=== PATIENT | female | born 1955 | race Two or more races ===

== ENCOUNTER 2023-08-07 21:39 | Inpatient (IN) | payer MEDICARE, OTHER ==
[~2023-08-07] VITALS: Ht 162.6 cm; Wt 89.8 kg
[2023-08-07 20:00] VITALS: BP 117/75; TEMP 98.1; O2SAT 100
[2023-08-07] MEDS ORDERED: LORAZEPAM 0.5 MG TABLET PO PRN (22:30)
[2023-08-07] MEDS ORDERED: ACETAMINOPHEN 325 MG TABLET PO PRN (22:30)
[2023-08-07] MEDS ORDERED: MAGNESIUM HYDROXIDE 30 ML UDC PO PRN (22:30)
[2023-08-07] MEDS ORDERED: MAG HYDROX/AL HYDROX/SIMETH 30 ML UDC PO PRN (22:30)
[2023-08-07] MEDS ORDERED: TEMAZEPAM 7.5 MG CAPSULE PO PRN (22:30)
[2023-08-07] MEDS ORDERED: MELA5TAB PO (22:32)
[2023-08-07] MEDS ORDERED: RISP2TAB85 PO (22:33)
[2023-08-07] MEDS ORDERED: [UNRECOGNIZED DRUG - CODE] SQ (22:35)
[2023-08-07] MEDS ORDERED: SENN-261 PO (22:36)
[2023-08-07] MEDS ORDERED: HALO5TAB PO (22:37)
[2023-08-08] MEDS ORDERED: SENNOSIDES 8.6 MG TABLET PO PRN
[2023-08-08] MEDS: BLOOD SUGAR DIAGNOSTIC 1 EACH STRIP IN ONE (00:18)
[2023-08-08] MEDS ORDERED: NACL SQ SCH (05:00)
[2023-08-08] MEDS ORDERED: HEPARIN SOD PORCINE SQ SCH (05:00)
[2023-08-08] MEDS ORDERED: [UNRECOGNIZED DRUG - OTHER] SQ SCH (05:00)
[2023-08-08 08:00] VITALS: BP 125/85; TEMP 97.6; O2SAT 95
[2023-08-08] MEDS: THERAHONEY GEL 1.5 OZ TUBE TP SCH (09:40)
[2023-08-08] MEDS: risperiDONE 1 MG TABLET PO SCH ×2 (12:30→21:00)
[2023-08-08 16:00] VITALS: BP 149/93; TEMP 97.7; O2SAT 95
[2023-08-08] MEDS: HALOPERIDOL LACTATE INJ 5 MG/ML VIAL IM PRN (21:12)
[2023-08-09 08:00] VITALS: BP_SYST 121; BP_SYST 142; BP_DIAS 58; BP_DIAS 72; TEMP 98; TEMP 98.6; O2SAT 100; O2SAT 98
[2023-08-09 16:00] VITALS: BP 124/78; TEMP 97.9; O2SAT 95
[2023-08-09] MEDS: PROSOURCE / PROSTAT (PYXIS) 30 ML UDC PO SCH (18:27)
[2023-08-09] MEDS: ARGININE/GLUTAMINE/CALCIUM BMB 1 EACH POWD.PACK PO SCH (18:27)
[2023-08-09 20:00] VITALS: BP 134/65; TEMP 98.2; O2SAT 95
[2023-08-10 08:00] VITALS: BP 112/68; TEMP 97.7; O2SAT 96
[2023-08-10] MEDS: ENSURE ENLIVE 237 ML LIQUID (VANILLA) PO SCH (09:07)
[2023-08-10] MEDS: MULTIVIT W/MINERALS 1 TAB TABLET PO SCH (09:10)
[2023-08-10] MEDS: ZINC SULFATE 220 MG CAPSULE PO SCH (09:10)
[2023-08-10 16:00] VITALS: BP 124/64; TEMP 97.7; O2SAT 95
[2023-08-10 21:26] VITALS: BP 128/69; TEMP 97.7; O2SAT 95
[2023-08-11 08:00] VITALS: BP 151/86; TEMP 98.6; O2SAT 96
[2023-08-11 16:00] VITALS: BP 110/66; TEMP 98.7; O2SAT 95
[2023-08-11 20:01] VITALS: BP 134/71; TEMP 98.2; O2SAT 100
[2023-08-12 08:00] VITALS: BP 129/70; TEMP 97.7; O2SAT 95
[2023-08-12 16:00] VITALS: BP 122/67; TEMP 97.7; O2SAT 94
[2023-08-12 21:09] VITALS: BP 110/68; TEMP 98; O2SAT 95
[2023-08-13 08:00] VITALS: BP 139/99; TEMP 98.6; O2SAT 98
[2023-08-13 16:00] VITALS: BP 135/79; TEMP 98.1; O2SAT 100
[2023-08-13 20:00] VITALS: BP 106/60; TEMP 98.8; O2SAT 97
[2023-08-14 04:12] VITALS: BP 106/60; TEMP 98.8; O2SAT 97
[2023-08-14 08:00] VITALS: BP 124/65; TEMP 97.9; O2SAT 100
[2023-08-14] MEDS: Z GUARD REMEDY 4 OZ OINT TP SCH (10:45)
[2023-08-14 16:00] VITALS: BP 122/63; TEMP 98.9; O2SAT 97
[2023-08-14 20:00] VITALS: BP 106/62; TEMP 98.4; O2SAT 98
[2023-08-14] MEDS: risperiDONE 1 MG TABLET PO SCH (20:33)
[2023-08-15 08:00] VITALS: BP 120/77; TEMP 97.7; O2SAT 98
[2023-08-15 16:00] VITALS: BP 123/69; TEMP 97.9; O2SAT 96
[2023-08-15 20:00] VITALS: BP 115/61; TEMP 98; O2SAT 96
[2023-08-15] MEDS: risperiDONE 1 MG TABLET PO SCH (20:55)
[2023-08-16 08:00] VITALS: BP 117/63; TEMP 98.6; O2SAT 94
[2023-08-16 16:00] VITALS: BP 116/63; TEMP 97.6; O2SAT 95
[2023-08-16 20:00] VITALS: BP 119/68; TEMP 98.3; O2SAT 97
[2023-08-17 08:00] VITALS: BP 117/70; TEMP 97.8; O2SAT 96
[2023-08-17 16:00] VITALS: BP 128/69; TEMP 98.2; O2SAT 96
[2023-08-17 20:58] VITALS: BP 126/69; TEMP 98.2; O2SAT 96
[2023-08-18 08:00] VITALS: BP 130/63; TEMP 98.6; O2SAT 96
[2023-08-18 16:00] VITALS: BP 122/68; TEMP 98.1; O2SAT 98
[2023-08-18 20:50] LABS: APPEARANCE,URINE CLEAR (CLEAR); BILIRUBIN,URINE NEGATIVE (NEGATIVE); BLOOD, URINE NEGATIVE Ery/uL (NEGATIVE); COLOR,URINE YELLOW (YELLOW); KETONES,URINE NEGATIVE (NEGATIVE); LEUKOCYTE ESTERASE ,URINE TRACE (NEGATIVE); NITRITE, URINE NEGATIVE (NEGATIVE); PROTEIN,URINE NEGATIVE (NEGATIVE); UGLUCOSE NEGATIVE (NEGATIVE); UROBILINOGEN,URINE 0.2 EU/dL (0.2)
[2023-08-18 20:57] LABS: ADD URINE CULTURE NO; BACTERIA,URINE 1RARE /HPF (None Seen); MUCUS,URINE Few /LPF (None Seen); RBC,URINE 0-2 /HPF (0-2)
[2023-08-18 21:47] VITALS: BP 116/65; TEMP 98.1; O2SAT 100
[2023-08-19 08:00] VITALS: BP 119/65; TEMP 97.9; O2SAT 97
[2023-08-19 08:02] LABS: BASOPHILS # (AUTO) 0.1 K/uL (0.0-0.2); BASOPHILS % (AUTO) 0.6 % (0.0-2.0); EOSINOPHILS # (AUTO) 0.4 K/uL (0.0-0.7); EOSINOPHILS % (AUTO) 4.4 % (0.0-6.0); HEMATOCRIT 33 % (33-45); LYMPHOCYTES # (AUTO) 2.6 K/uL (0.8-4.8); LYMPHOCYTES % (AUTO) 26.8 % (20.0-44.0); MEAN CORPUSCULAR HEMOGLOBIN 31 PG (26.0-33.0); MEAN CORPUSCULAR HGB CONC 34 g/dl (31.0-36.0); MEAN CORPUSCULAR VOLUME 91 fL (82-100); MONOCYTES # (AUTO) 0.9 K/uL (0.1-1.30); NEUTROPHILS # (AUTO) 5.7 K/uL (1.8-8.9); NEUTROPHILS % (AUTO) 59.2 % (43.0-81.0); PLATELET COUNT (AUTO) 311 K/uL (150-450); RED BLOOD CELL COUNT(AUTO) 3.58 MIL/uL (4.0-5.2); RED CELL DISTRIBUTION WIDTH 14.9 % (11.5-15.0); WHITE BLOOD COUNT (AUTO) 9.6 K/uL (4.3-11.0)
[2023-08-19 08:18] LABS: ALBUMIN 2.5 g/dL (3.4-5.0); BILIRUBIN,TOTAL 0.3 mg/dL (0.2-1.0); CALCIUM, SERUM 8.4 mg/dL (8.5-10.1); CREATININE 0.9 mg/dL (0.6-1.3); POTASSIUM 3.2 mmol/L (3.5-5.1); TOTAL PROTEIN, SERUM 6.1 g/dL (6.4-8.2)
[2023-08-19] MEDS: POTASSIUM CHLORIDE 20 MEQ TAB.PRT.SR PO ONE (12:41)
[2023-08-19 16:16] VITALS: BP 119/76; TEMP 98.7; O2SAT 98
[2023-08-19 20:16] VITALS: BP 114/68; TEMP 97.7; O2SAT 96
[2023-08-20 08:00] VITALS: BP 130/73; TEMP 97.7; O2SAT 97
== END 2023-08-20 13:45 | DRG 885 ==
LOC: GPS 21:39
PROVIDERS: ADMIT Psychiatry & Neurology Psychosomatic Medicine; ATTEND Nurse Practitioner Acute Care
DX: F29 Unspecified psychosis not due to a substance or known physiological condition (principal); G93.41 Metabolic encephalopathy; L89.313 Pressure ulcer of right buttock, stage 3; E44.0 Moderate protein-calorie malnutrition; F39 Unspecified mood [affective] disorder; F32.A Depression, unspecified; E66.9 Obesity, unspecified; E87.6 Hypokalemia; E88.09 Other disorders of plasma-protein metabolism, not elsewhere classified; F20.9 Schizophrenia, unspecified; Z20.822 Contact with and (suspected) exposure to COVID-19; Z73.6 Limitation of activities due to disability; Z68.34 Body mass index [BMI] 34.0-34.9, adult; L89.320 Pressure ulcer of left buttock, unstageable
CPT/HCPCS: 36415; 80053-TC; 81001; 82962-TC; 85025-TC; 97110-TC; 97116-TC; 97530-TC; J1630